=== PATIENT | female | born 1950 | race Caucasian/White ===

== ENCOUNTER → 2016-10-20 | Outpatient (CLI) | payer OTHER, MEDICARE ==
[~2016-10-20] MED LIST: ACIDOPHILUS1 EACH PO; AMBIEN 5 MG TABL5 M1 PO; AMITRIPTYLINE H50 M2 PO; ARMOUR THYROID30 M1 PO; BENICAR20 MG PO; BORON CITRATE1 GM PO; CAL-MAG-ZINC T1 EACH PO; COUMADIN 5 MG TA5 M1 PO; CYTOMEL 5MCG TA5 MC1 PO; EVENING PRIMRO500 MG PO; FOLAMIN PO; GLUCOSAMINE1000 MG PO; HYDROXYCHLOROQ200 M1 PO; LORTAB 5-500 T1 EAC1 PO; MACROBID 100 M100 M1 PO; MAG-AL LIQUID30 ML PO; MEDROL2 MG; METAFOLBIC TAB1 EACH PO; METROGEL55 GM TP; MILK THISTLE140 M1 PO; MSM500 MG PO; NABUMETONE 500500 M1 PO; NORCO 5-325 TA1 EACH PO; ONE-A-DAY WOMENS PO; OPTIFLEX-C400 MG PO; PERCOCET PO; PILOCARPINE HCL5 M1 PO; PRILOSEC40 MG PO; PROGESTERONE100 MG PO; TESTIM5 GM TD; TRAMADOL 50 MG50 MG PO; TYLENOL325 MG PO; VICODIN 5-5001 EACH PO; VITAMIN D32000 UNI1 PO; VIVELLE-DOT1 EAC1 TD; VIVELLE-DOT1 EAC1 TOP; ZOCOR40 MG PO; ZOFRAN ODT4 MG PO
[2016-10-20 09:40] LABS: CREATININE 1.1 mg/dL (0.6-1.0)
== END ==
LOC: CAT 09:03
PROVIDERS: Internal Medicine Pulmonary Disease
DX: R91.1 Solitary pulmonary nodule (principal); Z85.118 Personal history of other malignant neoplasm of bronchus and lung

== ENCOUNTER → 2018-06-09 | Outpatient (CLI) | payer OTHER, MEDICARE ==
[2018-06-09 12:21] LABS: CREATININE 1.1 mg/dL (0.6-1.0)
== END ==
LOC: CAT 11:43
PROVIDERS: Internal Medicine Hematology & Oncology
DX: J98.4 Other disorders of lung (principal); I25.10 Atherosclerotic heart disease of native coronary artery without angina pectoris; R93.89 Abnormal findings on diagnostic imaging of other specified body structures; Z85.118 Personal history of other malignant neoplasm of bronchus and lung

== ENCOUNTER → 2018-06-23 | Outpatient (CLI) | payer OTHER, MEDICARE ==
--- NOTE | ~2018-06-23 | PATH ---
[facility] [address] [facility] [place] [address] PATHOLOGY RPT PROCEDURE Name: AZUL HOBSON Room #: REG [facility]#: [id number] Admission: 06/23/18 Date of : 46 Discharge: Report #: [id number] Path Case #: [id number] Note [facility] Accession Number: [id number] TESTS RESULT FLAG UNITS REF RANGE LAB Clinician Provided Cytology Information No. of containers..01 Other (Miscellaneous) Source: [A] 01 LEFT NECK DIAGNOSIS: [A] 02 LEFT NECK POSITIVE FOR MALIGNANT CELLS. ADENOCARCINOMA IS PRESENT. COMMENT, THIS CASE WAS DISCUSSED WITH DR TONI Soares ON 06/24/2018 AT 10AM CORRELATE WITH SURGICAL BIOPSY. Signed out by: 02 Christopher Hernández MD, Pathologist NPI- [id number] Performed by: 01 [place], Fitness/Wellness Director (ASCP) FLAG LEGEND: L-Low Normal,H-High Normal,LL-Alert Low,HH-Alert High <-Panic Low,>-Panic High,A-Abnormal,AA-Critical Abnormal Performed at: [address] [place] [address] Vitaly Mazariegos MD, [address] [address] Lea Hernandez MD, Performed at: [address], [place], [place] [id number] MD Vitaly Mazariegos MD Phone: [phone]
--- NOTE | ~2018-06-23 | PATH ---
[facility] [address] [place] [address] PATHOLOGY RPT PROCEDURE Name: AZUL HOBSON [id number] Admission: 06/23/18 Date of : 46 Discharge: Report #: [id number] Path Case #: [id number] [facility] Accession Number: [id number] . 01 Material submitted: . LEFT NECK MASS . 01 Clinical history: . Left neck mass . 02 Diagnosis: Soft tissue, "neck, biopsy: - MODERATELY DIFFERENTIATED ADENOCARCINOMA. SEE COMMENT. (SHA:fay; 06/24/2018) QMS/06/24/2018 . 02 Comment: This case is also reviewed by Dr. Arleen Arreguin. . This case was also discussed with Dr. Reynaldo Parker on 06/24/2018 at 10am. Immunoperoxidase stains will be ordered and an additional report will follow. (SHA:fay; 06/24/2018) . 02 Addendum: . The mucin stain is positive. Immunoperoxidase stain for ER is negative, CK20 is negative, CDX2 is negative, p40 is negative; CK 7 is positive and TTF1 is positive. Based on these immunoperoxidase stains this is a moderately differentiated adenocarcinoma, most likely origin is the lung. As requested by Dr. Reynaldo Parker, the case is sent for EGFR, ROS, ALK, and PDL1, on block A1. . Professional services performed by [email or web address] at [facility], [address] [place], [place] [address], [place] [address]. Technical services performed by [employer] at [address] [place] [address], [address], [place] [address]. . (SHA:at;06/27/2018) LB/06/27/2018 Addendum Electronically Signed by Christopher Hernández MD. Pathologist . 02 Electronically signed: . Christopher Hernández MD, Pathologist NPI- [id number] . 01 Gross description: . [facility] [address] [place] [address] PATHOLOGY RPT PROCEDURE Name: AZUL HOBSON [id number] Admission: 06/23/18 Date of : 46 Discharge: Report #: [id number] Path Case #: [id number] Received in formalin labeled "Azul Hobson, left subclavicular biopsy," are multiple fragments of needle cores of patton soft tissue measuring 0.3 x 0.2 x 0.1 cm in aggregate dimensions. The specimen is filtered and entirely submitted in cassette A1. (TSD; 06/23/2018) TOB/TOB . 02 Pathologist provided ICD-10: C76.0 . 02 CPT . 709784, [id number], [id number], [id number] Specimen Comment: A courtesy copy of this report has been sent to Specimen Comment: [phone], . Specimen Comment: Report sent to / DR MORGAN Specimen Comment: A duplicate report has been generated due to demographic updates. Performed at: [address], [place], [place] [id number] MD Vitaly Mazariegos MD Phone: [phone] Performed at: [address] [id number] MD Lea Hernandez MD Phone: [phone]
[2018-06-23 13:48] LABS: INR 1.1; PROTIME 11.6 Seconds (9.3-11.4)
== END | disposition home or self-care (01) ==
LOC: SPEC 12:04
PROVIDERS: Radiology Vascular & Interventional Radiology
DX: C76.0 Malignant neoplasm of head, face and neck (principal); Z79.899 Other long term (current) drug therapy; Z79.01 Long term (current) use of anticoagulants